=== PATIENT | male | born 2000 | race African-American/Black ===

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

== ENCOUNTER 2018-11-14 12:33 | Emergency (ER) | payer OTHER ==
[2018-11-14 12:49] VITALS: BP 125/69; PULSE 88; TEMP 98.5; BMI 18.6
[2018-11-14] MEDS ORDERED: ACETAMINOPHEN 325 MG TABLET (FP) PO ONE (13:32)
[2018-11-14] MEDS ORDERED: ACETAMINOPHEN 325 MG TABLET (FP) ONE (13:35)
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
== END 2018-11-14 14:20 | disposition home or self-care (01) ==
LOC: JERFT 12:33
PROC: 0HQ0XZZ Repair Scalp Skin, External Approach (ICD-10-PCS; principal; 2018-11-14)
DX: S01.01XA Laceration without foreign body of scalp, initial encounter (principal); Y04.2XXA Assault by strike against or bumped into by another person, initial encounter; Y93.89 Activity, other specified; Y92.89 Other specified places as the place of occurrence of the external cause; Z91.018 Allergy to other foods
CPT/HCPCS: 99281-25

== ENCOUNTER 2021-09-28 23:54 | Emergency (ER) | payer OTHER ==
[2021-09-29 00:19] VITALS: BP 106/70; PULSE 97; RESP 18; TEMP 99; BMI 20.3
== END 2021-09-29 01:02 | disposition home or self-care (01) ==
LOC: JER 23:54
PROC: 0HQ1XZZ Repair Face Skin, External Approach (ICD-10-PCS; principal; 2021-09-28)
DX: S01.81XA Laceration without foreign body of other part of head, initial encounter (principal); W26.8XXA Contact with other sharp object(s), not elsewhere classified, initial encounter
CPT/HCPCS: 99282-25

== ENCOUNTER 2022-09-06 05:37 | Emergency (ER) | payer OTHER ==
[2022-09-06 05:46] VITALS: BP 119/81; PULSE 81; RESP 16; TEMP 98.5; BMI 20.9
[2022-09-06] MEDS ORDERED: IBUPROFEN 400 MG TABLET (FP) PO ONE ×2 (07:54→07:58)
[2022-09-06] MEDS ORDERED: LIDOCAINE 5% TOPICAL PATCH TP ONE (08:02)
[2022-09-06] MEDS ORDERED: LIDOCAINE 5% TOPICAL PATCH ONE (08:08)
== END 2022-09-06 08:27 | disposition home or self-care (01) ==
LOC: JER 05:37
DX: S46.811A Strain of other muscles, fascia and tendons at shoulder and upper arm level, right arm, initial encounter (principal); M54.6 Pain in thoracic spine; X50.0XXA Overexertion from strenuous movement or load, initial encounter
CPT/HCPCS: 99283-25

== ENCOUNTER 2022-09-06 15:11 | Emergency (ER) | payer OTHER ==
[2022-09-06 15:18] VITALS: RESP 20; TEMP 98.6; BMI 20.9
[2022-09-06 16:24] VITALS: BP 118/92; PULSE 90
[2022-09-06] MEDS ORDERED: METHOCARBAMOL 500 MG TABLET PO ONE (16:39)
[2022-09-06] MEDS ORDERED: KETOROLAC TROMETHAMINE 30 MG/1 ML VIAL IM ONE (16:39)
[2022-09-06] MEDS ORDERED: KETOROLAC TROMETHAMINE 30 MG/1 ML VIAL ONE (16:47)
[2022-09-06] MEDS ORDERED: METHOCARBAMOL 500 MG TABLET ONE (16:47)
== END 2022-09-06 17:45 | disposition home or self-care (01) ==
LOC: JERFT 15:11
PROC: 3E0233Z Introduction of Anti-inflammatory into Muscle, Percutaneous Approach (ICD-10-PCS; principal; 2022-09-06)
DX: M54.6 Pain in thoracic spine (principal); M62.830 Muscle spasm of back
CPT/HCPCS: 99284-25

== ENCOUNTER 2022-09-11 19:53 | Emergency (ER) | payer OTHER ==
[2022-09-11 20:18] VITALS: BP 119/80; PULSE 99; RESP 18; TEMP 98.7; BMI 20.3
[2022-09-11] MEDS ORDERED: KETOROLAC TROMETHAMINE 30 MG/1 ML VIAL IM ONE (22:05)
[2022-09-11] MEDS ORDERED: KETOROLAC TROMETHAMINE 30 MG/1 ML VIAL ONE (22:09)
== END 2022-09-12 00:34 | disposition home or self-care (01) ==
LOC: JER 19:53
PROC: 3E0233Z Introduction of Anti-inflammatory into Muscle, Percutaneous Approach (ICD-10-PCS; principal; 2022-09-11)
DX: R07.9 Chest pain, unspecified (principal); R10.9 Unspecified abdominal pain; M79.661 Pain in right lower leg; M41.9 Scoliosis, unspecified; V09.20XA Pedestrian injured in traffic accident involving unspecified motor vehicles, initial encounter
CPT/HCPCS: 71046-TC-FY; 93005; 93010; 99284-25